=== PATIENT | male | born 1940 | race Caucasian/White ===

== ENCOUNTER 2021-08-25 12:07 | Outpatient (CLI) | payer MEDICARE, OTHER ==
[~2021-08-25 12:07] MED LIST: NO HOME MEDS
== END 2021-08-25 23:59 | disposition home or self-care (01) ==
LOC: RAD 12:07
PROVIDERS: ATTEND Nurse Practitioner Family
DX: R56.9 Unspecified convulsions (principal)
CPT/HCPCS: 95816